=== PATIENT | male | born 1950 | race Caucasian/White ===

== ENCOUNTER 2021-05-20 04:13 | Emergency (ER) | payer MEDICARE, OTHER ==
[~2021-05-20] VITALS: Ht 180.3 cm; Wt 92.6 kg
--- NOTE | 2021-05-20 04:17 | PHYS DOC ---
Past History Past Medical History: Arthritis, DVT Smoking: Cigarettes, Quit Greater Than 1 Year General Adult HPI: HPI: "..We were involved with some Saturday night activity.. I had taken some Viagra...Well my heart was racing.. too fast and I was worried it would not come down.. I took an Atenolol.. Dr. Hogue advised me to do that if.. it kept racing.. I was worried I .. over did.. so I came in to get checked out..." Patient is a 71 year old male who presents with above hx and complaints of chest discomfort and tachycardia. Patient states he had taken some Viagra before his sexual activity. Patient during the sexual activity his heart started racing and did not want to slow afterwards. Patient became more worried and took a atenolol as instructed by his primary doctor Dr. Hogue. Patient states he came in to get checked out in case he had overdone. Patient states he currently now has no chest di scomfort or shortness of breath. Patient denies previous significant MIs. 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 Patient does take a daily aspirin as instructed by Dr. Hogue. Patient has remote history of smoking for 3 to 4 years approximately 2 packs a day. Has not smoked for years and years. Patient did get COVID vaccination x2. Has not gotten flu vaccination this season. Review of Systems: Review of Systems: Constitutional: Denies fever or chills Eyes: Denies change in visual acuity HENT: Denies nasal congestion or sore throat Respiratory: Denies cough or shortness of breath Cardiovascular: History of tachycardia and chest chest discomfort after taking Viagra and having sex GI: Denies abdominal pain, nausea, vomiting, bloody stools or diarrhea : Denies dysuria Musculoskeletal: Denies back pain or joint pain Integument: Denies rash Neurologic: Denies headache, focal weakness or sensory changes Endocrine: Denies polyuria or polydipsia Lymphatic: Denies swollen glands Psychiatric: Denies depression or anxiety Family History: Family History: Noncontributory to presentation Current Medications: Current Meds: See nursing for home meds Allergies: Allergies: No known drug allergies other than sulfa Physical Exam: PE: Constitutional: no acute distress, non-toxic appearance. [] HENT: Normocephalic, atraumatic, bilateral external ears normal, oropharynx moist, no oral exudates, nose normal. Shaved head Eyes: PERRLA, EOMI, conjunctiva normal, no discharge. Glasses Neck: Normal range of motion, no tenderness, supple, no stridor. [] Cardiovascular. Bradycardia:Heart rate regular rhythm, no murmur [] monitor shows a sinus bradycardia with no acute morphology Lungs & Thorax: Bilateral breath sounds equal apex on auscultation [] Abdomen: Bowel sounds normal, soft, no tenderness, no masses, no pulsatile masses. [] Skin: Warm, dry, no erythema, no rash. [] Back: No tenderness, no CVA tenderness. [] Extremities: No tenderness, no cyanosis, no clubbing, ROM intact, no edema. Some superficial cording in right lower calf previous DVT Neurologic: Alert and oriented X 3, moves all extremities on request, does have distal sensory,, no focal deficits noted. [] Psychologic: Affec anxious, judgement normal, mood normal. [] EKG: EKG: My interpretation EKG shows a sinus bradycardia at 59 bpm. No acute morphology. Time of EKG is 0424 hrs. [] My interpretation 2nd EKG shows a sinus rhythm at 63 bpm. No acute morphology. No acute interval change. Time of this EKG is 552 Radiology/Procedures: Radiology/Procedures: [][place] [address] IMAGING REPORT Signed PATIENT: DIANNE BENTLEY JACCOUNT: [id number] : 1950 LOCATION: ER AGE: 71 SEX: M EXAM STATUS: PRE ER ORD. PHYSICIAN: VANESA SCRUGGS MD REASON: co, tachy PROCEDURE: PORTABLE CHEST 1V EXAM: CHEST ONE VIEW. HISTORY: Tachycardia. COMPARISON: None. FINDINGS: A frontal view of the chest is obtained. There are mild interstitial opacities in the bases. There is no pneumothorax or pleural effusion. The heart is not enlarged. IMPRESSION: 1. Mild basilar interstitial infiltrates. Correlate for mild pulmonary edema or atypical pneumonia. Electronically signed by: Shiloh Thapa MD (05/20/2021 4:50 AM) [facility] DICTATED AND SIGNED BY: SONIA THAPA MD DATE: 05/20/21 0449 CC: VANESA SCRUGGS MD; KARO HOGUE MD ~MTH0 0 Heart Score: C/O Chest Pain: Yes HEART Score for Chest Pain: HEART Score for Chest Pain Response (Comments) Value History Slighlty/Non-Suspicious 0 ECG Nonspecific Repolarizatio 1 Age > 65 2 Risk Factors 1 or 2 Risk Factors 1 Total 4 Risk Factors: Risk Factors: DM, Current or recent (<one month) smoker, HTN, HLP, family history of CAD, obesity. Risk Scores: Score 0 - 3: 2.5% MACE over next 6 weeks - Discharge Home Score 4 - 6: 20.3% MACE over next 6 weeks - Admit for Clinical Observation Score 7 - 10: 72.7% MACE over next 6 weeks - Early Invasive Strategies Course & Med Decision Making: Course & Med Decision Making Pertinent Labs and Imaging studies reviewed. (See chart for details) Patient continue take a daily aspirin. Follow-up with Dr. Hogue. Consider outpatient stress testing. Self isolate for next 5 days. Take Zithromax 250 a day. Use MDI 2 puffs 4 times a day. Follow-up primary care. Return if any concerns. Impression: 1. Hx. of Tachycardia 2. Hx. of HTN 3. Atypical Pneumonia- Bibasilar Infiltrateds. [] Dragon Disclaimer: Dragon Disclaimer: This electronic medical record was generated, in whole or in part, using a voice recognition dictation system. Departure Departure: Referrals: KARO HOGUE MD (PCP) Scripts Azithromycin (ZITHROMAX) 250 Mg Tablet 250 MG PO DAILY for ANTI-BIOTIC for 5 Days, #5 TAB 0 Refills Prov: VANESA SCRUGGS MD 05/20/21 Dragon Disclaimer This chart was dictated in whole or in part using Voice Recognition software in a busy, high-work load, and often noisy Emergency Department environment. It may contain unintended and wholly unrecognized errors or omissions. VANESA SCRUGGS MD May 20, 2021 04:16
[2021-05-20] MEDS ORDERED: IV RINGERS SOLUTION,LACTATED 1,000 ML IV SCH (04:30)
[2021-05-20] MEDS ORDERED: ASPIRIN CHEWABLE 81 MG TABLET. PO ONE (04:30)
--- NOTE | 2021-05-20 04:42 | EKG ---
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
--- NOTE | 2021-05-20 04:53 | RAD ---
EXAM: CHEST ONE VIEW. HISTORY: Tachycardia. COMPARISON: None. FINDINGS: A frontal view of the chest is obtained. There are mild interstitial opacities in the bases. There is no pneumothorax or pleural effusion. The heart is not enlarged. IMPRESSION: 1. Mild basilar interstitial infiltrates. Correlate for mild pulmonary edema or atypical pneumonia. Electronically signed by: Shiloh Thapa MD (05/20/2021 4:50 AM) [facility] COMPANYLoret[facility]
[2021-05-20 05:04] LABS: BASO # 0.1 x10^3/uL (0.0-0.2); BASO % 1 % (0-3); EOS # 0.1 x10^3/uL (0.0-0.7); EOS % 2 % (0-3); HEMATOCRIT 44.9 % (39.0-53.0); HEMOGLOBIN 15.3 g/dL (13.0-17.5); LYMPH % 25 % (24-48); MEAN CORPUSCULAR HEMOGLOBIN 31 pg (25-35); MEAN CORPUSCULAR HGB CONC 34 g/dL (31-37); MEAN CORPUSCULAR VOLUME 90 fL (79-100); MONO # 0.5 x10^3/uL (0.0-1.1); MONO % 6 % (0-9); NEUT # 5.3 x10^3uL (1.8-7.7); NEUT % 67 % (31-73); PLATELET COUNT 278 x10^3/uL (140-400); RED BLOOD COUNT 4.97 x10^6/uL (4.30-5.70); RED CELL DISTRIBUTION WIDTH 13.2 % (11.5-14.5)
[2021-05-20 05:10] LABS: CALCIUM 8.4 mg/dL (8.5-10.1); CREATININE 1.1 mg/dL (0.7-1.3); GFR 65.8; POTASSIUM 3.6 mmol/L (3.5-5.1)
[2021-05-20 05:15] LABS: INFLUENZA A PATIENT NEGATIVE (NEGATIVE); INFLUENZA B PATIENT NEGATIVE (NEGATIVE)
[2021-05-20 05:23] LABS: ALBUMIN 3.4 g/dL (3.4-5.0); DIRECT BILIRUBIN 0.2 mg/dL (0.0-0.2); MAGNESIUM 2.2 mg/dL (1.8-2.4); TOTAL BILIRUBIN 1.1 mg/dL (0.2-1.0); TOTAL PROTEIN 7.1 g/dL (6.4-8.2)
[2021-05-20] MEDS ORDERED: AZIT250T PO (05:55)
[2021-05-20] MEDS ORDERED: AZITHROMYCIN 250 MG TABLET. PO ONE (06:00)
[2021-05-20] MEDS ORDERED: ALBUTEROL SULFATE 8GM INHALER. INH ONE (06:00)
--- NOTE | 2021-05-20 06:02 | EKG ---
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
[2021-05-20 06:10] LABS: BACTERIA,URINE 0 /HPF (0-FEW); BILIRUBIN,URINE NEG (NEG); CLARITY,URINE CLEAR; COLOR,URINE YELLOW; GLUCOSE,URINE NEG (NEG); NITRITE,URINE NEG (NEG); RBC,URINE RARE /HPF (0-2); SQUAMOUS EPITHELIAL CELL,UR OCC /LPF; UROBILINOGEN,URINE 0.2 mg/dL (0.2 mg/dL)
[2021-05-20 06:12] LABS: AMPHETAMINE/METHAMPHETAMINE NEG (NEG); BARBITURATES NEG (NEG); BENZODIAZEPINES NEG (NEG); CANNABINOIDS NEG (NEG); COCAINE NEG (NEG); METHADONE NEG (NEG); OPIATES NEG (NEG); PHENCYCLIDINE NEG (NEG)
[2021-05-20 06:13] VITALS: BP 138/81
== END 2021-05-20 06:32 | disposition home or self-care (01) ==
LOC: ER 04:13
DX: J18.9 Pneumonia, unspecified organism (principal); I10 Essential (primary) hypertension; M19.90 Unspecified osteoarthritis, unspecified site; Z20.822 Contact with and (suspected) exposure to COVID-19; Z86.718 Personal history of other venous thrombosis and embolism; Z87.891 Personal history of nicotine dependence
CPT/HCPCS: 36415; 71045; 80048; 80076; 80307; 81001; 82550; 83690; 83735; 83880; 84443; 84484; 85025; 85379; 85610; 85730; 87428; 93005; 94640; 96360; 99285; J7120; 94664